=== PATIENT | female | born 1950 | race Caucasian/White ===

== ENCOUNTER → 2020-03-08 | Outpatient (CLI) | payer MEDICARE, OTHER ==
--- NOTE | 2020-03-08 13:48 | KCIC ---
EXAMINATION: Magnetic resonance imaging (MRI) of the cervical spine without contrast 03/08/2020 12:45 PM HISTORY: Left cervical radiculitis TECHNIQUE: Multiplanar multi-weighted MRI of the cervical spine was performed without intravenous con trast using the standard cervical spine protocol. Contrast information: None administered COMPARISON: None available. FINDINGS: Minimal reversal the normal cervical lordosis centered at C3-C4. No spondylolisthesis. Vertebral body heights are maintained. Marrow signal intensity is normal in all sequences. There is mild disc heigh t loss at C4-C5, C5-C6 and C6-C7. Mild endplate irregularity at C5-C6 and C6-C7. Disc bulges identifi ed from C3-C4 through C6-C7. Mild anterior marginal osteophytosis is identified. Disc desiccation is identified all levels of the cervical spine. Cervical spinal cord signal intensity is normal in all s equences. Vertebral artery flow voids are maintained. Posterior fossa is normal in appearance. Cranio cervical junction is normal. Atlantoaxial articulation degenerative changes are present with soft tis marvin thickening along the anterior atlantoaxial ligament inferior to anterior arch of C1. No definite edema is identified. C2-C3: Disc is normal in configuration. No significant facet arthropathy. No uncovertebral joint dise ase. No neuroforaminal or spinal canal stenosis. C3-C4: There is a posterior disc osteophyte complex with central disc extrusion. No facet or uncovert ebral joint disease. No neuroforaminal stenosis. Mild spinal canal stenosis without deformity of the cord or cord signal alteration. C4-C5: There is a posterior disc osteophyte complex with right central disc extrusion. No facet or un covertebral joint disease. Mild right neuroforaminal stenosis. Canal stenosis without deformity of th e cord or cord signal alteration. C5-C6: There is a posterior disc osteophyte complex. Mild facet and uncovertebral joint disease. Mild to moderate bilateral neuroforaminal stenosis. Mild spinal canal stenosis, exacerbated by ligamentum flavum infolding. No cord compression or cord signal alteration. C6-C7: There is a posterior disc osteophyte complex. There is a right central disc extrusion. No sign ificant facet arthropathy. Mild left neuroforaminal stenosis. Mild spinal canal stenosis without defo rmity of the cord or cord signal alteration. C7-T1: Disc is normal in configuration. Moderate left and moderate to severe arthropathy. No neurofor aminal or spinal canal stenosis. IMPRESSION: Mild degenerative changes of the cervical spine as described in detail above. There is soft tissue thickening along the inferior margin of the anterior atlantoaxial ligament, nons pecific. Consideration may be given for sequela of prior trauma versus underlying rheumatoid arthropa thy. Electronically signed by: Barbara Robin MD (03/08/2020 1:46 PM) [facility]
== END ==
LOC: KCIC MRI 12:25
PROVIDERS: ATTEND Physical Medicine & Rehabilitation
DX: M47.22 Other spondylosis with radiculopathy, cervical region (principal); M40.40 Postural lordosis, site unspecified; M25.78 Osteophyte, vertebrae
CPT/HCPCS: 72141

== ENCOUNTER → 2020-03-27 | Outpatient (CLI) | payer MEDICARE, OTHER ==
[~2020-03-27] MED LIST: AMLO-186 PO; CALC-71 PO; CRESTOR5 MG PO; ESTR1TAB5 PO; FENO145T3 PO; GABA300C18 PO; IOHEXOL 180 MG/ML 10 ML VIAL. ONE; LOSA100T14 PO; ZOLP5TAB5 PO; methylPREDNISolone ACETATE 40 MG/ML VIAL. ONE; methylPREDNISolone ACETATE 80 MG/ML VIAL. ONE
--- NOTE | 2020-03-27 14:28 | PDOC1 ---
INITIAL PAIN CONSULT DATE OF SERVICE: DOS: DATE: 03/27/20 TIME: 14:22 CHIEF COMPLAINT: Chief Complaint: Neck and left upper extremity pain HISTORY OF PRESENT ILLNESS: 69-year-old female presents history of pain in the base the neck and left upper extremity for approximately 7 months now without any specific injury or accident that she is aware of pain in the left arm as well as the base the neck and left posterior shoulder. Patient reports that he came on his own without any specific injuries patient reports the pain now is intermittent intensity but always present rating the base the neck and left shoulder left upper extremity especially left forearm and anterior aspect with numbness and tingling in the thumb and first and second fingers patient reports there is throbbing shooting pain in the left arm as well as in the neck aching and dull in the neck as well as intermittent mitten tingling in the left hand with numbness in the index finger initially but has been getting better with time patient reports is radiating into the arm fairly significantly it was well with repetitive motions lifting objects reaching overhead with the left arm and laying on her left side is occasionally wakes her from sleep not every night patient ports is not effective bowel bladder control or ability to walk symptoms that when she is driving a car using her left arm for any elevated anterior reaching activities. She has not had any formal physical therapies or chiropractic treatments or other modalities at this time is try gabapentin as well as ibuprofen which do decrease the pain by about 20%. Patient did have an MRI scan of the cervical spine showing degenerative changes throughout with posterior disc osteophyte complexes C4-5 C5-6 C6-7 with mild to moderate bilateral neuroforaminal stenosis at C5-6 and right central disc extrusion at C6-7 with mild left neuroforaminal stenosis and mild right neuroforaminal stenosis C4-5. PAST MEDICAL HISTORY: PMH: Hypertension, arthritis, skin cancer PREVIOUS SURGERIES: Past Surgical Hx: Hysterectomy 1987, cholecystectomy 1989, tonsillectomy as a child, skin cancer excision on her nose 1974 CURRENT MEDICATIONS: Current Meds: Active Scripts Medications Dose Route/Sig Max Daily Dose Days Date Category Gabapentin 300 Mg Capsule 300 Mg PO TID 03/27/20 Reported Calcium 600 + Vit D Caplet (Calcium Carbonate/Vitamin D3) 1 Each Tablet 1 Each PO DAILY 03/27/20 Reported Zolpidem Tartrate 5 Mg Tablet 5 Mg PO PRN QHS PRN 03/27/20 Reported Crestor (Rosuvastatin Calcium) 5 Mg Tablet 10 Mg PO HS 03/27/20 Reported Prempro 0.625-2.5 Mg Tablet (Estrogen,Con/M-Progest Acet) 1 Each Tablet 1 Tab PO DAILY 03/27/20 Reported Losartan Potassium 100 Mg Tablet 100 Mg PO DAILY 03/27/20 Reported Fenofibrate (Fenofibrate Nanocrystallized) 145 Mg Tablet 1 Tab PO DAILY 03/27/20 Reported Amlodipine Besylate 5 Mg Tablet 5 Mg PO DAILY 03/27/20 Reported ALLERGIES; Allergies: Coded Allergies: No Known Drug Allergies (Unverified , 03/27/20) FAMILY HISTORY: Family Hx: Dementia, cancers, heart disease, hypertension SOCIAL HISTORY: Social Hx: Patient drinks alcohol about 2 to 3 glasses of wine once or twice a month does not smoke not use any illegal illicit or recreational drugs is single lives locally in [facility] and is currently retired. REVIEW OF SYSTEMS: ROS: Positive for those items mentioned in history of present illness, all systems are reviewed, otherwise negative, is complete full and well-documented on patient's chart. PHYSICAL EXAM: VS: Blood pressure is 149/74 pulse 80 respirations 18 temperature is 97.8 F height is 5 feet 2 inches weight is 150 pounds PE: PHYSICAL EXAMINATION: GENERAL: The patient is awake, alert, oriented, appropriate, very pleasant demeanor HEENT: Shows normocephalic, atraumatic. Extraocular movements are intact and symmetrical. Oral cavity: Mucous membranes moist and pink. Dentition is intact. NECK: Shows anterior throat supple without palpable lymphadenopathy noted. Swallow reflex symmetrical. CHEST: Shows normal on inspection. Breath sounds are clear bilaterally, no rales rhonchi wheezes auscultated. HEART: Shows S1, S2 clear. No murmurs auscultated. ABDOMEN: Soft, nontender, nondistended, obese. No palpable organomegaly is noted. No rebound or guarding demonstrated. BACK: Shows spine grossly in the midline. Normal-appearing cervical lordotic curvature. Cervical paraspinous posterior shows symmetrical on inspection on palpation some moderate tenderness diffusely bilaterally in the lower distribution paraspinous muscles and in the superior medial trapezius bilaterally slightly more on the left than the right but without specific trigger points without radiation. Patient has good rotational motion of the cervical spine both laterally greater than 45 degrees closer to 90 degrees as well as full extension full forward flexion without significant difficulty. The re is slightly increased thoracic kyphosis, some minor flattening of the lumbar lordotic curvature. No tenderness over the spinous processes, sacrum or sacroiliac regions. EXTREMITIES: Upper extremities show deep tendon reflexes 2+ in the biceps and triceps tendons. Motor exam is 5 on a scale of 5 with right market development manager strength, biceps and triceps flexion and 5/5 on the left. Peripheral pulses are 2+ radial. No peripheral edema is noted bilaterally. Upper extremities are warm and dry to touch, equal in color and appearance. SKIN: Shows warm and dry, good turgor. No edema. No sores, rashes or bruising throughout. IMPRESSION: Impression: 69-year-old female with 7-month history increasing pain base of the neck left upper extremity in a radicular fashion MRI scan cervical spine as noted Hypertension Arthritis Plan: Options were discussed with the patient including conservative medical management, physical therapies and interventional techniques. She would like to pursue interventional techniques. We discussed a cervical epidural steroid injection using description as well as anatomical models described procedure. Risks were discussed including but not limited to: Bleeding, infection, possibility of epidural hematoma and subsequent neurological compromise, dural puncture, headaches, spinal cord and/or nerve damage, side effects of steroid medication, and poor results regarding pain control. Patient understands wished to proceed. Patient will return to clinic in approximate 2 weeks for follow-up was counseled as to return appointment activity level and side effects to be aware of. Procedure cervical epidural steroid injection at the C6-7 level, using local anesthetic under sterile prep and drape using C-arm fluoroscopic guidance under local anesthesia medications injected ; 120 mg Depo-Medrol + 5 mL normal saline and 2 mL contrast; condition at discharge is stable patient tolerated procedure well. and had no complications COLLIN KENDRICK MD Mar 27, 2020 14:28
== END | disposition home or self-care (01) ==
LOC: PNCL 13:02
PROVIDERS: ATTEND Anesthesiology
DX: M50.323 Other cervical disc degeneration at C6-C7 level (principal); M25.78 Osteophyte, vertebrae; M79.622 Pain in left upper arm; M54.5 Low back pain; I10 Essential (primary) hypertension; M19.90 Unspecified osteoarthritis, unspecified site; Z90.710 Acquired absence of both cervix and uterus; Z90.49 Acquired absence of other specified parts of digestive tract; Z98.890 Other specified postprocedural states; Z79.899 Other long term (current) drug therapy; Z85.828 Personal history of other malignant neoplasm of skin; Z82.49 Family history of ischemic heart disease and other diseases of the circulatory system
CPT/HCPCS: 62321; J1030; J1040; Q9965

== ENCOUNTER → 2020-04-10 | Outpatient (CLI) | payer MEDICARE, OTHER ==
--- NOTE | 2020-04-10 13:26 | PDOC ---
Progress Note - Pain Clinic Date of Service: DOS: DATE: 04/10/20 TIME: : Diagnosis: Dx: Cervical radiculopathy with cervical degenerative disc disease and cervical spinal stenosis History or Present Illness: HPI: 69-year-old female returns follow-up status post cervical epidural steroid injection x1. Patient approximate 50% improvement after the first injection still some pain left upper extremity neck and shoulder on the left side as well. Patient reports its worse with walking standing changing positions repetitive motions with upper extremity and lifting items but much better than it was patient reports that she is sleeping better as well on the left side. Patient rates her pain as a 7 on scale 10 is worse over the past week 6 on average 5 its least is a 6 today. Patient ports is tingling on and off in intensity in the left forearm most in the biceps and forearm to the wrist and some tingling in the hand but no loss of motor function. Patient reports no new motor or sensory deficits or other complaints. Physical Exam: VS: Pressure is 149/73 pulse 76 respirations 18 temperature 90.7 F height 5 feet 2 inches weight 148 pounds PE: PHYSICAL EXAMINATION: GENERAL: The patient is awake, alert, oriented, appropriate, very pleasant demeanor HEENT: Shows normocephalic, atraumatic. Extraocular movements are intact and symmetrical. Oral cavity: Mucous membranes moist and pink. NECK: Shows anterior throat supple without palpable lymphadenopathy noted. Swallow reflex symmetrical. CHEST: Shows normal on inspection. Breath sounds are clear bilaterally. HEART: Shows S1, S2 clear. No murmurs auscultated. ABDOMEN: Soft, nontender, nondistended, obese. No palpable organomegaly is noted. BACK: Shows spine grossly in the midline. Normal-appearing cervical lordotic curvature. Cervical paraspinous muscles are symmetrical on inspection, palpation shows some moderate tenderness diffusely in the inferior aspect of the cervical paraspinous posterior right and left is symmetrical without evidence better hypertrophy and no asymmetry no trigger points. Patient shows full rotation motion of the cervical spine both laterally as well as extension flexion without significant increase in pain or limitation. There is slightly increased thoracic kyphosis, some minor flattening of the lumbar lordotic curvature. EXTREMITIES: Upper extremities show deep tendon reflexes 2+ in the biceps and triceps tendons. Motor exam is 5 on a scale of 5 with right stripping machine operator, biceps and triceps flexion and 5/5 on the left. Peripheral pulses are 2+ radial. No peripheral edema is noted bilaterally. Upper extremities are warm and dry to touch, equal in color and appearance. SKIN: Shows warm and dry, good turgor. No edema. No sores, rashes or bruising throughout. Procedure: Procedure: Options were discussed with the patient. Patient will chart reviews her current medication regimen updated current review of systems updated today as well. We will proceed with a second in the series cervical epidural steroid injection today with fluoroscopic guidance. Risks were discussed including but not limited to: Bleeding, infection, possibility of epidural hematoma and subsequent neurological compromise, dural puncture, headaches, spinal cord and/or nerve damage, side effects of steroid medication, and poor results regarding pain control. Patient understands wished to proceed. Patient will return to clinic in approximate 2 weeks for follow-up, was counseled as to return appointment activity level, and side effects to be aware of. Medication Injected: Med Injected: Procedure cervical epidural steroid injection at the C6-7 level, using local anesthetic under sterile prep and drape using C-arm fluoroscopic guidance under local anesthesia medications injected ; 120 mg Depo-Medrol + 5 mL normal saline and 2 mL contrast; condition at discharge is stable patient tolerated procedure well. and had no complications Condition at Discharge: Condition at Discharge: Condition at discharge stable, patient tolerated procedure well and had no complications. COLLIN KENDRICK MD Apr 10, 2020 13:26
== END | disposition home or self-care (01) ==
LOC: PNCL 12:51
PROVIDERS: ATTEND Anesthesiology
DX: M50.10 Cervical disc disorder with radiculopathy, unspecified cervical region (principal); M48.061 Spinal stenosis, lumbar region without neurogenic claudication; Z79.899 Other long term (current) drug therapy; Z98.890 Other specified postprocedural states
CPT/HCPCS: 62321; J1030; J1040; Q9965

== ENCOUNTER → 2020-05-01 | Outpatient (CLI) | payer MEDICARE, OTHER ==
--- NOTE | 2020-05-01 14:10 | PDOC ---
Progress Note - Pain Clinic Date of Service: DOS: DATE: 05/01/20 TIME: 14:05 Diagnosis: Dx: Cervical radiculopathy with cervical degenerative disc disease and cervical spinal stenosis History or Present Illness: HPI: 69-year-old female returns follow-up status post cervical epidural steroid action x2. Patient reports doing very well after last injection with about 75 to 80% improvement but over the past weekend she was moving some firewood multiple trips lifting and bending stooping and using her upper extremities repetitively with increased pain now in the base the neck and left arm patient reports is mostly in the shoulder and the anterior bicep radiating to the anterior forearm into the hand and fingers with some numbness and tingling patient reports is slightly more fatigable on the left than the right but no overt motor loss. Patient describes it as aching and dull sharp and shooting and tingling in the left hand patient reports off and on in intensity and generalized not awaken her from sleep at night patient reports is a 5 on a scale of 10 at all times worst least and average over the past week and is a 5 on a scale of 10 today as well. Patient reports other complaints or deficits. Physical Exam: VS: Blood pressure is 162/80 pulse 81 respirations 20 temperature 98.7 F height is 5 feet 2 inches weight is 148 pounds PE: PHYSICAL EXAMINATION: GENERAL: The patient is awake, alert, oriented, appropriate, very pleasant demeanor HEENT: Shows normocephalic, atraumatic. Extraocular movements are intact and symmetrical. Oral cavity: Mucous membranes moist and pink. NECK: Shows anterior throat supple without palpable lymphadenopathy noted. Swallow reflex symmetrical. CHEST: Shows normal on inspection. Breath sounds are clear bilaterally. HEART: Shows S1, S2 clear. No murmurs auscultated. ABDOMEN: Soft, nontender, nondistended, obese. No palpable organomegaly is noted. BACK: Shows spine grossly in the midline. Normal-appearing cervical lordotic curvature. Cervical paraspinous muscles are symmetrical on inspection on palpation some moderate tenderness diffusely only in the inferior aspect of the cervical paraspinous musculature slightly more on the left than the right but without asymmetry without atrophy hypertrophy or trigger points. Patient cervical spine shows good rotation both laterally as well as full extension full forward flexion without significant difficulty. There is slightly increased thoracic kyphosis, some minor flattening of the lumbar lordotic curvature. EXTREMITIES: Upper extremities show deep tendon reflexes 2+ in the biceps and triceps tendons. Motor exam is 5 on a scale of 5 with right strength, biceps and triceps flexion and 5/5 on the left. Peripheral pulses are 2+ radial. No peripheral edema is noted bilaterally. Upper extremities are warm and dry to touch, equal in color and appearance. SKIN: Shows warm and dry, good turgor. No edema. No sores, rashes or bruising throughout. Procedure: Procedure: Discussed with the patient. Patient chart reviews her current medication regimen updated current review of systems updated today as well. We will proceed with a cervical epidural steroid injection today as a third in a series with fluoroscopic guidance. Risks were discussed including but not limited to: Bleeding, infection, possibility of epidural hematoma and subsequent neurological compromise, dural puncture, headaches, spinal cord and/or nerve damage, side effects of steroid medication, and poor results regarding pain control. Patient understands and wished to proceed. Patient will return to the clinic in approximate 2 weeks for follow-up, was counseled as to return appointment activity level and side effects to be aware of. Medication Injected: Med Injected: Procedure cervical epidural steroid injection at the C6-7 level, using local anesthetic under sterile prep and drape using C-arm fluoroscopic guidance under local anesthesia medications injected ; 120 mg Depo-Medrol + 5 mL normal saline and 2 mL contrast; condition at discharge is stable patient tolerated procedure well. and had no complications Condition at Discharge: Condition at Discharge: Condition at discharge stable, patient tolerated the procedure well and had no complications. COLLIN KENDRICK MD May 01, 2020 14:10
--- NOTE | 2020-05-01 14:10 | PDOC4 ---
PROCEDURE Procedure Patient was consented for cervical epidural steroid injection. Risks were d iscussed including but not limited to: Bleeding, infection, possibility of epidural hematoma and subsequent neurological compromise, dural puncture, headaches, spinal cord and/or nerve damage, side effects of steroid medication, and poor results regarding pain control. Patient understands and wished to proceed. Procedure cervical epidural steroid injection at the C6-7 level, using local anesthetic under sterile prep and drape using C-arm fluoroscopic guidance under local anesthesia medications injected ; 120 mg Depo-Medrol + 5 mL normal saline and 2 mL contrast; condition at discharge is stable patient tolerated procedure well. and had no complications COLLIN KENDRICK MD May 01, 2020 14:10
== END | disposition home or self-care (01) ==
LOC: PNCL 13:25
PROVIDERS: ATTEND Anesthesiology
DX: M50.10 Cervical disc disorder with radiculopathy, unspecified cervical region (principal); M48.02 Spinal stenosis, cervical region; Z79.899 Other long term (current) drug therapy; Z98.890 Other specified postprocedural states
CPT/HCPCS: 62321; J1030; J1040; Q9965